=== PATIENT | female | born 1980 | race Caucasian/White ===

== ENCOUNTER → 2016-06-10 | Outpatient (CLI) | payer BC ==
[~2016-06-10] MED LIST: CATHETER FLUSH 10 ML SYR IV PRN; DOCU100C37 PO; HYDR-3812 PO; IBUP-1773 PO; IOHEXOL 350 MG/ML 100 ML (OMNIPAQUE 350) VIAL IV ONE; NS 100 ML (IVPB) BAG IV ONE; PREN1TAB79 PO
--- NOTE | 2016-06-10 12:08 | Diagnostic Imaging Report ---
PROCEDURE: CT abdomen and pelvis with contrast. TECHNIQUE: Multiple contiguous axial images were obtained through the abdomen and pelvis after administration of intravenous contrast. INDICATION: Recurrent UTI. CONTRAST: 100 mL of Omnipaque 350 is administered intravenously. FINDINGS: The lung bases demonstrate a calcified granuloma in the right side with no significant abnormality otherwise. The liver, the gallbladder, the spleen, the pancreas, and the adrenal glands appear unremarkable. The kidneys have symmetric enhancement and contrast excretion. 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 The uterus is slightly heterogeneous with a lobulated contour, which may relate to underlying fibroids. This can be better evaluated with pelvic ultrasound or MRI if needed. There is a lobulated peripherally enhancing cyst in the right adnexa measuring 2.2 cm, likely related to a corpus luteum cyst. The appendix is normal. There is no bowel obstruction. There is, however, [id number] amount of fecal material in the colon. No significant free fluid or fluid collection in the abdomen or pelvis is seen. No para-aortic significantly enlarged lymph node is noted. The osseous structures appear grossly unremarkable. IMPRESSION: Lobulated slightly heterogeneous myometrium may relate to underlying fibroids. This can be better evaluated with pelvic ultrasound or MRI if needed. Dictated by: Dictated on workstation # [id number]
== END ==
LOC: RAD 11:18
PROVIDERS: ATTEND Family Medicine
DX: N39.0 Urinary tract infection, site not specified (principal)
CPT/HCPCS: 74177

== ENCOUNTER → 2017-06-10 | Outpatient (CLI) | payer BC ==
[~2017-06-10] MED LIST changes: +ACHD5005 PO; -CATHETER FLUSH 10 ML SYR IV PRN; -HYDR-3812 PO; -IOHEXOL 350 MG/ML 100 ML (OMNIPAQUE 350) VIAL IV ONE; -NS 100 ML (IVPB) BAG IV ONE
--- NOTE | 2017-06-10 12:56 | Diagnostic Imaging Report ---
PROCEDURE: US OB SINGLE FETUS <14 WKS. TECHNIQUE: Multiple real-time grayscale images were obtained over the gravid uterus in various projections. INDICATION: Early survey. COMPARISON: There are no prior studies available for comparison. FINDINGS: There is a gestational sac within the uterus containing a single live embryo. Embryonic heart motion was noted at a rate of 144 BPM was recorded. The crown-rump length suggested estimated gestational age is 7 weeks 3 days plus or minus one half week. The yolk sac was also identified. The amniotic fluid volume is within normal limits. At this time it was not certain whether placenta will develop. There is no solitary mass or free fluid collection evident. The ovaries were not well visualized due to overlying bowel gas. IMPRESSION: 1. There is a gestational sac within the uterus containing a single live intrauterine . The estimated gestational age is 7 weeks 3 days plus or minus one half week. The EDC is 01/24/2018. 2. There are no obvious embryonic abnormalities identified. If a more sensitive evaluation of the anatomy is desired, then a followup in 10-12 weeks would be recommended. Dictated by: Dictated on workstation # [id number]
== END ==
LOC: RAD 10:17
PROVIDERS: ATTEND Family Medicine
DX: Z34.91 Encounter for supervision of normal pregnancy, unspecified, first trimester (principal); Z3A.01 Less than 8 weeks gestation of pregnancy
CPT/HCPCS: 76801

== ENCOUNTER → 2017-09-23 | Outpatient (CLI) | payer BC ==
--- NOTE | 2017-09-23 12:26 | Diagnostic Imaging Report ---
INDICATION: anatomical survey assessment. TECHNIQUE: Multiple real-time grayscale images were obtained over the gravid uterus. COMPARISON: 06/10/2017. FINDINGS: There is presence of a single viable intrauterine , currently in a transverse position. Visualized anatomical structures have an unremarkable appearance including the kidneys, bladder, stomach, intracranial structures, cardiac structures, three-vessel cord along with insertion site, and spine. Normal amount of amniotic fluid is present. There is an area of asymmetric lobulated mass suggested about the anterior aspect of the uterus. While nonspecific, may be reflective of fibroid of 4.2 x 1.6 x 4.4 cm in size. cardiac activity at 138 beats per minute. Placenta is posterior fundal and without evidence for previa. Biometrical measurements are as follows: Biparietal 5.31 cm, age 22 weeks 1 days. Head circumference 19.91 cm, age 22 weeks 1 days. Abdominal circumference 17.85 cm, age 22 weeks 6 days. Femur length 3.78 cm, age 22 weeks 1 days. Sonographic estimate age: 22 weeks 3 days. Sonographic estimated date of delivery: 01/24/18. Estimated Weight: 500 gm (+/- 73 gm). LMP percentile: 41%. heart rate: 138 beats per minute. number: 1 of 1. IMPRESSION: 1. Single viable intrauterine , currently in a transverse position. Sonographic estimated age of 22 weeks 3 days for sonographically estimated date of delivery of January 24, 2018. There has been appropriate interval growth. No abnormalities are noted at this time. Dictated by: Dictated on workstation # [id number]
== END ==
LOC: RAD 10:14
PROVIDERS: ATTEND Family Medicine
DX: Z36.89 Encounter for other specified antenatal screening (principal); Z3A.22 22 weeks gestation of pregnancy
CPT/HCPCS: 76805

== ENCOUNTER 2018-01-13 05:34 | Outpatient (CLI) | payer BC ==
[~2018-01-13] VITALS: Ht 162.6 cm; Wt 72.6 kg
== END 2018-01-13 14:32 | disposition home or self-care (01) ==
LOC: PREOP 05:34
PROVIDERS: ATTEND Obstetrics & Gynecology
DX: Z01.818 Encounter for other preprocedural examination (principal)

== ENCOUNTER 2018-01-20 06:10 | Inpatient (IN) | payer BC ==
[~2018-01-20] VITALS: Ht 162.6 cm; Wt 72.8 kg
[~2018-01-20 06:10] MED LIST changes: +CITRIC ACID/SOB CIT (BICITRA) 30 ML UDC ONE; +LACTATED RINGERS 1,000 ML IV ONE; +METOCLOPRAMIDE INJ 10 MG/2 ML (REGLAN) ONE; +NS (IVPB) 50 ML ONE; +ceFAZolin 1,000 MG/10 ML (ANCEF) VIAL ONE; +metroNIDAZOLE 500MG/100ML IVPB 100 ML ONE
[2018-01-20 06:20] VITALS: BP 133/79
[2018-01-20] MEDS ORDERED: CATHETER FLUSH 10 ML SYR IV PRN (06:30)
[2018-01-20] MEDS ORDERED: metroNIDAZOLE 500MG/100ML IVPB 100 ML IV ONE (06:30)
[2018-01-20] MEDS ORDERED: raNItidine INJECTION 50 MG in NS (IVPB) 50 ML IV ONE (06:30)
[2018-01-20] MEDS ORDERED: ceFAZolin INJECTION 1,000 MG in NS (IVPB) 50 ML IV ONE (06:30)
[2018-01-20] MEDS ORDERED: METOCLOPRAMIDE INJ 10 MG/2 ML (REGLAN) IV ONE (06:30)
[2018-01-20] MEDS: LACTATED RINGERS 1,000 ML IV PRN ×2 (06:30→07:17)
[2018-01-20] MEDS ORDERED: CITRIC ACID/SOB CIT (BICITRA) 30 ML UDC PO ONE (06:30)
[2018-01-20 06:45] LABS: BASOPHILS % (AUTO) 0 % (0-10); EOSINOPHILS # (AUTO) 0.1 10^3/uL (0.0-0.3); EOSINOPHILS % (AUTO) 2 % (0-10); HEMATOCRIT 36 % (35-52); HEMOGLOBIN 12.9 G/DL (11.5-16.0); LYMPHOCYTES # (AUTO) 1.8 X 10^3 (1.0-4.0); LYMPHOCYTES % (AUTO) 24 % (12-44); MEAN CORPUSCULAR HEMOGLOBIN 32 PG (25-34); MEAN CORPUSCULAR HGB CONC 36 G/DL (32-36); MEAN CORPUSCULAR VOLUME 90 FL (80-99); MEAN PLATELET VOLUME 11.2 FL (7.4-10.4); MONOCYTES # (AUTO) 0.5 X 10^3 (0.0-1.0); MONOCYTES % (AUTO) 7 % (0-12); NEUTROPHILS # (AUTO) 4.8 X 10^3 (1.8-7.8); NEUTROPHILS % (AUTO) 66 % (42-75); PLATELET COUNT 264 10^3/uL (130-400); RED BLOOD COUNT 4.03 10^6/uL (4.35-5.85); RED CELL DISTRIBUTION WIDTH 12.8 % (10.0-14.5); WHITE BLOOD COUNT 7.3 10^3/uL (4.3-11.0)
[2018-01-20 06:46] LABS: BILIRUBIN,URINE NEGATIVE (NEGATIVE); CLARITY,URINE SLIGHTLY CLOUDY; COLOR,URINE YELLOW; GLUCOSE, URINE (UA) NEGATIVE (NEGATIVE); KETONES,URINE NEGATIVE (NEGATIVE); LEUKOCYTE ESTERASE ,URINE 1+ (NEGATIVE); NITRITE,URINE NEGATIVE (NEGATIVE); PH,URINE 6 (5-9); PROTEIN,URINE 1+ (NEGATIVE); UROBILINOGEN,URINE NORMAL (NORMAL)
[2018-01-20] MEDS ORDERED: fentaNYL INJECTION 100 MCG/2 ML AMP ONE (06:53)
[2018-01-20] MEDS ORDERED: BUPIVACAINE 0.5% 30 ML (SENSORCAINE) VIAL ONE ×2 (06:53→08:06)
[2018-01-20] MEDS ORDERED: OXYTOCIN (PITOCIN) 10 UNIT/ML VIAL ONE (06:53)
[2018-01-20 06:56] LABS: BACTERIA,URINE LARGE /HPF
[2018-01-20] MEDS ORDERED: LACTATED RINGERS 1,000 ML IV ONE ×2 (07:13→13:30)
[2018-01-20] MEDS ORDERED: LIDOCAINE PF 1% 5 ML (XYLOCAINE) AMP ONE (07:23)
[2018-01-20] MEDS ORDERED: FLU QUADRIvalent (5+ YOA) 2018-2019 (AFLURIA) 0.5 ML IM ONE (07:45)
--- NOTE | 2018-01-20 07:46 | Progress Note-Pre Operative ---
Pre-Operative Progress Note H&P Reviewed The H&P was reviewed, patient examined and no changes noted. Date Seen by Provider: Jan 20, 2018 Time Seen by Provider: 07:15 Date H&P Reviewed: Jan 20, 2018 Time H&P Reviewed: 07:20 Pre-Operative Diagnosis: previous section; ovarian cancer risk reduction MARELY BANEGAS DO Jan 20, 2018 07:46
[2018-01-20] MEDS ORDERED: ONDANSETRON 4 MG/2 ML (SDV) Z0FRAN ONE (07:53)
[2018-01-20] MEDS ORDERED: ROPIVACAINE 5MG/ML 30ML VIAL ONE (08:06)
[2018-01-20] MEDS ORDERED: LIDOCAINE PF 2% 5 ML (XYLOCAINE) VIAL ONE (08:55)
--- NOTE | 2018-01-20 09:08 | Cesarean Section Operative ---
Procedure Procedure Note Pre-operative Diagnosis: Dory Pulido is a 37 /Para 2/ 1,Gestational Age 39 3/7 weeks, history of previous section, ovarian cancer risk reduction, uterine fibroid, gestational diabetes A1 Post-operative Diagnosis: same Procedure: Repeate low transverse section, risk reduction salpingectomy , myomectomy Physician: [facility] BANE[employer]AS [employer] Specialist: Linda Lilly APRN, buyer assistant needed to retract important neurovascular structures Estimated blood loss: 500 mL Disposition: stab;e Findings: Viable female , Apgars 9/9, weight 8$5oz, intact placenta, 3vc, submucosal uterine fibroids, tubes, and ovaries. Indications:Dory Pulido is a 37 /Para 2/ 1,Gestational Age 39 3/7 weeks, history of previous section, ovarian cancer risk reduction, uterine fibroid, gestational diabetes A1 presenting for repeat section. Procedure Details: The patient was seen in pre-op and the procedure was discussed with the patient in full, including the risks, benefits, and alternatives. All questions were answered. The patient was taken to the operating room and a time out was performed, verifying patient and procedure. After spinal anesthesia was placed by our anesthesia colleagues, the patient was placed in the dorsal supine with leftward tilt for uterine displacement.~ Her abdomen was then prepped and draped in the typical sterile fashion. A Pfannenstiel skin incision was made using a scalpel and carried down through the underlying fascia. The fascia was incised in the midline and tented up using Lata clamps. On both the inferior and superior fascia side the rectus muscle was dissected off bluntly and sharply using Matute scissors. The peritoneum was identified and entered bluntly in the midline. This was then stretched laterally using manual strength. After entering the abdominal cavity and confirming lack of intraperitoneal adhesions, a large Vamsi retractor was placed and the lower uterine segment was visualized. A bladder flap was created with the use of Metzenbaum scissors.~ A scalpel was utilized to make a low transverse uterine incision. Amniotomy was performed with an Allis clamp with return of clear fluid. The 's head was grasped and brought to the level of the incision. Fundal pressure was applied and was delivered without difficulty. Mouth and nares were suctioned with bulb suction. After the umbilical cord was clamped and cut, the infant was handed off to the pediatric staff. A sample of cord blood was then obtained. The placenta was delivered intact via uterine massage. The uterus was cleared of all clots and debris. The uterine incision was closed using 0 Vicryl in a running locked fashion. A second imbricated layer was placed using 0 Vicryl in a running fashion as well. The uterus was flexed forward and the posterior rectouterine space was inspected and cleared of all clots and debris. Again the hysterotomy site was examined and hemostasis was observed. The bilateral tubes appeared normal. St this point I performed a myomectomy on the 3x4 cm anterior submucosal fibroid. I elevated this with a Lata clamp and then excised at the base with cautery. I then closed the subserosal defect with several interrupted figure of 8 stitches of 2-0 vicryl. A salpingectomy was now performed at this time. I elevated each tube with marcello clamps and then incised the mesosalpinx with the LigaSure. I then cut at the cornual attachment to the uterus with the LigaSure. There was good hemostasis. I irrigated the pelvis. The abdominal gutters were cleared of all clots and debris. A final check of the uterine incision showed it to be hemostatic. The peritoneum was closed using 3-0 Vicryl in a running fashion. The fascia was closed with 0 Vicryl in a running fashion. The subcutaneous space was hemostatic , and irrigated. The subcutaneous space was closed with 3-0 Plain in several single interrupted stitches. The skin was then closed using 4-0 Monocryl in a running subcuticular fashion. The skin edges were reapproximated together and were hemostatic. A pressure dressing was applied. All sponge, lap and needle counts were correct at the end of the procedure per nursing. Vitals - Labs Vital Signs - I&O Vital Signs Date Time Temp Pulse Resp B/P (MAP) Pulse Ox O2 Delivery O2 Flow Rate FiO2 01/20/18 06:20 98.2 62 18 133/79 (97) Labs Laboratory Tests 01/20/18 06:20: Urine Color YELLOW, Urine Clarity SLIGHTLY CLOUDY, Urine pH 6, Urine Specific [place] 1.020, Urine Protein 1+H, Urine Glucose (UA) NEGATIVE, Urine Ketones NEGATIVE, Urine Nitrite NEGATIVE, Urine Bilirubin NEGATIVE, Urine Urobilinogen NORMAL, Urine Leukocyte Esterase 1+H, Urine RBC (Auto) NEGATIVE, Urine RBC NONE , Urine WBC 5-10H, Urine Squamous Epithelial Cells 5-10, Urine Crystals NONE, Urine Bacteria LARGEH, Urine Casts NONE, Urine Mucus NEGATIVE, Urine Culture Indicated YES 01/20/18 06:30: White Blood Count 7.3, Red Blood Count 4.03L, Hemoglobin 12.9, Hematocrit 36, Mean Corpuscular Volume 90, Mean Corpuscular Hemoglobin 32, Mean Corpuscular Hemoglobin Concent 36, Red Cell Distribution Width 12.8, Platelet Count 264, Mean Platelet Volume 11.2H, Neutrophils (%) (Auto) 66, Lymphocytes (%) (Auto) 24 , Monocytes (%) (Auto) 7, Eosinophils (%) (Auto) 2, Basophils (%) (Auto) 0, Neutrophils # (Auto) 4.8, Lymphocytes # (Auto) 1.8, Monocytes # (Auto) 0.5, Eosinophils # (Auto) 0.1, Basophils # (Auto) 0.0 01/20/18 07:52: Glucometer 88 MARELY BANEGAS DO Jan 20, 2018 09:08
[2018-01-20] MEDS ORDERED: NALOXONE 0.4 MG/ML 1 ML (NARCAN) VIAL IV PRN (09:30)
[2018-01-20] MEDS ORDERED: diphenhydrAMINE 50 MG/ML INJ (BENADRYL) IV PRN (09:30)
[2018-01-20] MEDS ORDERED: ONDANSETRON 4 MG/2 ML (SDV) Z0FRAN IV PRN (09:30)
[2018-01-20] MEDS ORDERED: OXYTOCIN/NORMAL SALINE 500 ML IV SCH (11:03)
[2018-01-20] MEDS ORDERED: D5 LR IV SOLUTION 1,000 ML IV SCH (11:03)
[2018-01-20] MEDS ORDERED: MEASLES,MUMPS,RUBELLA 1 EA INJ SC SCH (11:15)
[2018-01-20] MEDS ORDERED: HYDROmorphone 2 MG/ML VIAL (DILAUDID) IV PRN (11:15)
[2018-01-20] MEDS ORDERED: TETANUS,DIPTH,PERTUSS P/F (BOOSTRIX) 0.5 ML VIAL IM SCH (11:15)
[2018-01-20 12:20] VITALS: BP 107/66
[2018-01-20] MEDS: KETOROLAC 30 MG/ML VIAL IVP SCH ×2 (12:28→18:15)
[2018-01-20] MEDS: CATHETER FLUSH 10 ML SYR IV SCH ×2 (12:29→21:42)
[2018-01-20 16:20] VITALS: BP 113/71
[2018-01-20 19:56] VITALS: BP 126/73
[2018-01-20] MEDS: DOCUSATE SODIUM 100 MG (COLACE) CAP PO SCH (20:35)
[2018-01-21] VITALS: BP 132/80
[2018-01-21] MEDS: KETOROLAC 30 MG/ML VIAL IVP SCH ×2 (00:02→05:41)
[2018-01-21] MEDS: HYDROcodone/APAP 5 MG/325 MG (LORTAB) TAB PO PRN ×4 (03:25→21:03)
[2018-01-21 04:00] VITALS: BP 117/75
[2018-01-21 04:39] LABS: BASOPHILS % (AUTO) 0 % (0-10); EOSINOPHILS # (AUTO) 0.1 10^3/uL (0.0-0.3); EOSINOPHILS % (AUTO) 1 % (0-10); HEMATOCRIT 32 % (35-52); HEMOGLOBIN 10.8 G/DL (11.5-16.0); LYMPHOCYTES # (AUTO) 1.5 X 10^3 (1.0-4.0); LYMPHOCYTES % (AUTO) 10 % (12-44); MEAN CORPUSCULAR HEMOGLOBIN 31 PG (25-34); MEAN CORPUSCULAR HGB CONC 33 G/DL (32-36); MEAN CORPUSCULAR VOLUME 92 FL (80-99); MEAN PLATELET VOLUME 10.7 FL (7.4-10.4); MONOCYTES # (AUTO) 0.8 X 10^3 (0.0-1.0); MONOCYTES % (AUTO) 5 % (0-12); NEUTROPHILS # (AUTO) 13.3 X 10^3 (1.8-7.8); NEUTROPHILS % (AUTO) 85 % (42-75); PLATELET COUNT 255 10^3/uL (130-400); RED BLOOD COUNT 3.52 10^6/uL (4.35-5.85); RED CELL DISTRIBUTION WIDTH 12.9 % (10.0-14.5); WHITE BLOOD COUNT 15.7 10^3/uL (4.3-11.0)
[2018-01-21] MEDS: CATHETER FLUSH 10 ML SYR IV SCH (05:42)
[2018-01-21 08:20] VITALS: BP 106/82
[2018-01-21] MEDS: DOCUSATE SODIUM 100 MG (COLACE) CAP PO SCH ×2 (08:22→21:03)
[2018-01-21 12:30] VITALS: BP 106/72
[2018-01-21] MEDS: IBUPROFEN 600 MG (MOTRIN) TAB PO SCH ×2 (12:30→18:00)
[2018-01-21 15:00] VITALS: BP 106/63
--- NOTE | 2018-01-21 15:07 | Anesthesia-Regional Post-Op ---
Regional Patient Condition Mental Status: Alert, Oriented x3 Circulation: Same as Pre-Op Headache: Absent Sensation: Full Recovery Motor Block: Absent Post Op Complications Complications None Follow Up Care/Instructions Patient Instructions None needed. Anesthesia/Patient Condition Patient was seen this morning and she was doing well, no complaints, stable vital signs, no apparent adverse anesthesia problems. She seemed to have good pain relief from TAP block performed. ZENAIDA GODFREY DO Jan 21, 2018 15:07
[2018-01-21 21:00] VITALS: BP 115/67
[2018-01-22] MEDS: IBUPROFEN 600 MG (MOTRIN) TAB PO SCH ×3 (00:08→11:54)
[2018-01-22 03:20] VITALS: BP 117/71
[2018-01-22] MEDS: HYDROcodone/APAP 5 MG/325 MG (LORTAB) TAB PO PRN ×3 (03:27→15:03)
[2018-01-22] MEDS: DOCUSATE SODIUM 100 MG (COLACE) CAP PO SCH (07:58)
[2018-01-22 08:00] VITALS: BP 115/66
[2018-01-22] MEDS ORDERED: IBUP-844 PO (09:37)
[2018-01-22] MEDS ORDERED: ACHD5005 PO (09:37)
--- NOTE | 2018-01-22 09:38 | Discharge Inst-Women's Service ---
Discharge Inst-Women's Serv Depart Medication/Instructions New, Converted or Re-Newed RX: RX on Chart Final Diagnosis previous section ovarian cancer risk reduction Consults/Follow Up Additional Follow Up: Yes Activity Activity: Activity as Tolerated Driving Instructions: No Driving for 1 Week NO SMOKING: NO SMOKING Nothing Inside Vagina: No Douching, No [place], No Tampons Diet Discharge Diet: No Restrictions Symptoms to Report to : Bleeding Excessive, Pain Increased, Fever Over 101 Degrees F, Vaginal Bleeding Increase, Vaginal Discharge Foul For Any Problems or Questions: Contact Your Physician Skin/Wound Care Infection Signs and Symptoms: Increased Redness, Foul Odor of Wound, Increased Drainage, Skin Itchy or Has a Rash, Increased Swelling, Temperature Above 101 F Operative Area Clean and Dry: Keep Incision Clean/Dry Stitches/Jay/Dermabond: Dermabond Bathing Instructions: MARELY Broussard DO Jan 22, 2018 09:38
[2018-01-22 12:00] VITALS: BP 115/73
[2018-01-22 16:00] VITALS: BP 115/73
== END 2018-01-22 16:00 | disposition home or self-care (01) | DRG 766 ==
LOC: LDRP 06:10
PROVIDERS: ADMIT Obstetrics & Gynecology; ATTEND Obstetrics & Gynecology
PROC: 0UB90ZX Excision of Uterus, Open Approach, Diagnostic (ICD-10-PCS; 2018-01-20)
PROC: 0UT70ZZ Resection of Bilateral Fallopian Tubes, Open Approach (ICD-10-PCS; 2018-01-20)
PROC: 10D00Z1 Extraction of Products of Conception, Low, Open Approach (ICD-10-PCS; principal; 2018-01-20 07:44)
DX: O34.211 Maternal care for low transverse scar from previous cesarean delivery (principal); O24.410 Gestational diabetes mellitus in pregnancy, diet controlled; O34.13 Maternal care for benign tumor of corpus uteri, third trimester; D25.0 Submucous leiomyoma of uterus; Z40.03 Encounter for prophylactic removal of fallopian tube(s); Z3A.39 39 weeks gestation of pregnancy; Z37.0 Single live birth
CPT/HCPCS: 36415; 81000; 82962; 85025; 86850; 86900; 86901; 87088; 88302; 88305; 88307; 94664